=== PATIENT | female | born 1930 | race African-American/Black ===

== ENCOUNTER 2017-03-05 13:45 | Inpatient (IN) | payer OTHER, MEDICAID ==
[~2017-03-05] VITALS: Ht 167.6 cm; Wt 61.4 kg
[2017-03-05] MEDS ORDERED: SODIUM CHLORIDE 0.9% 500 ML IVB ONE (14:43)
[2017-03-05] MEDS ORDERED: MORPHINE SULFATE 4 MG/ML SYR/VIAL IV ONE (14:45)
[2017-03-05] MEDS ORDERED: ONDANSETRON HCL 4 MG/2 ML VIAL IV ONE (14:45)
[2017-03-05 14:53] LABS: Basophils # (auto) 0 uL; Basophils % (auto) 0.2 % (0.0-2.0); Eosinophils # (auto) 0 uL; Eosinophils % (auto) 0.3 % (0.0-7.0); Hematocrit 44.8 % (36.0-46.0); Hemoglobin 15.2 g/dL (12.2-16.2); Lymphocytes # (auto) 0.7 uL; Lymphocytes % (auto) 7.3 % (10.0-50.0); Mean Corpuscular Hemoglobin 33.4 pg (28.0-32.0); Mean Corpuscular Hgb Conc. 34.1 g/dL (32.0-36.0); Mean Corpuscular Volume 98.1 fL (80.0-100.0); Monocytes # (auto) 0.4 uL; Monocytes % (auto) 4.3 % (0.0-12.0); Neutrophils # (auto) 8.3 uL; Neutrophils % (auto) 87.9 % (37.0-80.0); Platelet Count (auto) 183 10^3/uL (140-450); Red Blood Cells 4.56 10^6/uL (4.0-5.20); Red Cell Distribution Width 13.5 % (11.8-14.3); White Blood Cell 9.5 10^3/uL (4.4-10.8)
[2017-03-05 15:10] LABS: Albumin 4.2 g/dL (3.4-5.0); BUN/Creatinine Ratio 11.6; Calcium 10.1 mg/dL (8.5-10.1)
[2017-03-05 15:13] LABS: Total Protein 8.7 g/dL (6.4-8.2)
[2017-03-05 15:38] LABS: Potassium 2.6 mmol/L (3.5-5.1)
[2017-03-05] MEDS ORDERED: GASTROGRAFIN 120 ML SOL ONE (16:03)
[2017-03-05] MEDS ORDERED: POTASSIUM CHL 20MEQ/50ML 50 ML IV ONE (16:15)
[2017-03-05] MEDS ORDERED: ONDANSETRON HCL 4 MG/2 ML VIAL IV PRN (17:45)
[2017-03-05] MEDS ORDERED: MORPHINE SULF INJ 2 MG/ML SYRINGE 1ML IV PRN (17:45)
[2017-03-05] MEDS ORDERED: SODIUM CHLORIDE 0.9% 1,000 ML IV ONE (17:45)
[2017-03-05] MEDS ORDERED: NITROGLYCERIN 0.4 MG SL TAB SL PRN (17:45)
[2017-03-05] MEDS: POTASSIUM CHL 20MEQ/50ML 50 ML IV SCH ×3 (18:22→22:49)
[2017-03-05 19:30] VITALS: BP 181/91
[2017-03-05] MEDS ORDERED: hydrALAZINE HCL 20 MG/ML VL IV PRN (20:45)
[2017-03-05] MEDS: ASPirin 300 MG RECTAL SUPP PR SCH (21:33)
[2017-03-05 22:00] VITALS: BP 163/92
[2017-03-06 05:00] VITALS: BP 121/68
[2017-03-06 07:11] LABS: Basophils # (auto) 0.1 uL; Basophils % (auto) 0.7 % (0.0-2.0); Eosinophils # (auto) 0 uL; Eosinophils % (auto) 0.1 % (0.0-7.0); Hematocrit 42.6 % (36.0-46.0); Hemoglobin 14.6 g/dL (12.2-16.2); Lymphocytes # (auto) 0.8 uL; Lymphocytes % (auto) 7.9 % (10.0-50.0); Mean Corpuscular Hemoglobin 33.8 pg (28.0-32.0); Mean Corpuscular Hgb Conc. 34.3 g/dL (32.0-36.0); Mean Corpuscular Volume 98.5 fL (80.0-100.0); Monocytes # (auto) 0.7 uL; Monocytes % (auto) 6.5 % (0.0-12.0); Neutrophils # (auto) 8.6 uL; Neutrophils % (auto) 84.8 % (37.0-80.0); Nucleated Red Blood Cells % 0.1 %; Platelet Count (auto) 184 10^3/uL (140-450); Red Blood Cells 4.32 10^6/uL (4.0-5.20); Red Cell Distribution Width 13.9 % (11.8-14.3); White Blood Cell 10.2 10^3/uL (4.4-10.8)
[2017-03-06 07:48] LABS: BUN/Creatinine Ratio 15.1; Calcium 9.5 mg/dL (8.5-10.1); Potassium 3.3 mmol/L (3.5-5.1)
[2017-03-06 09:00] VITALS: BP 103/56
[2017-03-06] MEDS: ASPirin 300 MG RECTAL SUPP PR SCH (10:00)
[2017-03-06 13:00] VITALS: BP 106/58
[2017-03-06] MEDS ORDERED: SODIUM CHLORIDE 0.9% 1,000 ML IV SCH (14:26)
[2017-03-06] MEDS ORDERED: diphenhdrAMINE HCL 50 MG/1 ML VL IV ONE (14:30)
[2017-03-06] MEDS ORDERED: ENOXAPARIN SOD 60 MG/0.6 ML SYRINGE SC ONE (16:15)
[2017-03-06 17:00] VITALS: BP 115/64
[2017-03-06 20:00] VITALS: BP 106/57
[2017-03-06 21:43] VITALS: BP 106/57
[2017-03-06] MEDS: ATORVASTATIN 20 MG TAB PO SCH (22:25)
[2017-03-06] MEDS: METOPROLOL TARTRATE 25 MG TAB PO SCH (22:26)
[2017-03-07 05:05] LABS: Basophils # (auto) 0.1 uL; Basophils % (auto) 2.3 % (0.0-2.0); Eosinophils # (auto) 0.2 uL; Eosinophils % (auto) 2.3 % (0.0-7.0); Hematocrit 37.3 % (36.0-46.0); Hemoglobin 12.8 g/dL (12.2-16.2); Lymphocytes # (auto) 1.5 uL; Lymphocytes % (auto) 23.2 % (10.0-50.0); Mean Corpuscular Hemoglobin 33.5 pg (28.0-32.0); Mean Corpuscular Hgb Conc. 34.3 g/dL (32.0-36.0); Mean Corpuscular Volume 97.9 fL (80.0-100.0); Monocytes # (auto) 0.5 uL; Monocytes % (auto) 7.7 % (0.0-12.0); Neutrophils # (auto) 4.3 uL; Neutrophils % (auto) 64.5 % (37.0-80.0); Nucleated Red Blood Cells % 0.1 %; Platelet Count (auto) 142 10^3/uL (140-450); Red Blood Cells 3.81 10^6/uL (4.0-5.20); Red Cell Distribution Width 13.3 % (11.8-14.3); White Blood Cell 6.6 10^3/uL (4.4-10.8)
[2017-03-07 05:10] VITALS: BP 110/69
[2017-03-07 05:30] LABS: BUN/Creatinine Ratio 22.5
[2017-03-07] MEDS ORDERED: ENOXAPARIN SOD 60 MG/0.6 ML SYRINGE SC SCH (06:00)
[2017-03-07 09:00] VITALS: BP 125/56
[2017-03-07] MEDS: ASPirin 300 MG RECTAL SUPP PR SCH (10:00)
[2017-03-07] MEDS: LISINOPRIL 5 MG TAB PO SCH (10:08)
[2017-03-07] MEDS: METOPROLOL TARTRATE 25 MG TAB PO SCH ×2 (10:09→21:48)
[2017-03-07] MEDS ORDERED: POTASSIUM CHL 20 Meq TABLET PO ONE (11:00)
[2017-03-07] MEDS: ASPirin 81 mg TAB PO SCH (11:18)
[2017-03-07 11:28] LABS: Urine Blood Trace /uL (Negative)
[2017-03-07 11:31] LABS: Urine WBC 7 /hpf (0 - 5)
[2017-03-07 11:32] LABS: Urine Bacteria FEW /hpf (None Seen)
[2017-03-07] MEDS ORDERED: LOVA40TA72 PO (11:56)
[2017-03-07] MEDS ORDERED: POTA1080 PO (11:56)
[2017-03-07] MEDS ORDERED: DOCU100T15 PO (11:56)
[2017-03-07] MEDS ORDERED: CHOL20007 PO (11:56)
[2017-03-07] MEDS ORDERED: TRAM50TA2 PO (11:56)
[2017-03-07] MEDS ORDERED: GLIM1TAB2 PO (11:56)
[2017-03-07] MEDS ORDERED: CEL100T PO (11:56)
[2017-03-07 13:00] VITALS: BP 124/52
[2017-03-07 17:00] VITALS: BP 128/51
[2017-03-07 20:00] VITALS: BP 106/46
[2017-03-07] MEDS: ATORVASTATIN 20 MG TAB PO SCH (21:47)
[2017-03-07 22:00] VITALS: BP 106/46
[2017-03-08 06:28] LABS: Basophils # (auto) 0 uL; Basophils % (auto) 0.9 % (0.0-2.0); Eosinophils # (auto) 0.1 uL; Hematocrit 38.4 % (36.0-46.0); Lymphocytes # (auto) 1.3 uL; Lymphocytes % (auto) 30.2 % (10.0-50.0); Mean Corpuscular Hemoglobin 33.4 pg (28.0-32.0); Mean Corpuscular Hgb Conc. 33.9 g/dL (32.0-36.0); Mean Corpuscular Volume 98.5 fL (80.0-100.0); Monocytes # (auto) 0.4 uL; Monocytes % (auto) 8.6 % (0.0-12.0); Neutrophils # (auto) 2.5 uL; Neutrophils % (auto) 57.3 % (37.0-80.0); Nucleated Red Blood Cells % 0.1 %; Platelet Count (auto) 140 10^3/uL (140-450); Red Cell Distribution Width 13.4 % (11.8-14.3); White Blood Cell 4.4 10^3/uL (4.4-10.8)
[2017-03-08 06:44] LABS: BUN/Creatinine Ratio 20.8; Calcium 9.1 mg/dL (8.5-10.1); Potassium 3.5 mmol/L (3.5-5.1)
[2017-03-08 06:47] LABS: INR 1.11 (0.9-1.15); Partial Thromboplastin Time 26.8 sec (22.64-33.71); Prothrombin Time 12.1 sec (9.37-12.3)
[2017-03-08] MEDS ORDERED: LIDOCAINE 2%HCL (LOCAL ANESTH.) INJ 20ML MDV ONE (07:31)
[2017-03-08] MEDS ORDERED: IODIXANOL 320MG/ML 100ML BTL IV ONE (07:31)
[2017-03-08] MEDS ORDERED: ANGIOMAX 250 MG VIAL IV ONE (07:38)
[2017-03-08] MEDS ORDERED: VERAPAMIL 2.5MG/ML INJ 2ML VIAL IV ONE (07:38)
[2017-03-08] MEDS ORDERED: fentaNYL CITRATE 100 MCG/2 ML VL ONE (07:38)
[2017-03-08] MEDS ORDERED: SODIUM CHL 0.9% 0 ML ONE (07:39)
[2017-03-08] MEDS ORDERED: MIDAZOLAM HCL 1MG/1ML-2 ML VIAL ONE (07:39)
[2017-03-08] MEDS ORDERED: HEPARIN SODIUM (PORCINE) 5000 UNITS/ML 1ML VIAL ONE (08:32)
[2017-03-08] MEDS: ASPirin 81 mg TAB PO SCH (10:34)
[2017-03-08] MEDS: LISINOPRIL 5 MG TAB PO SCH (10:34)
[2017-03-08] MEDS: METOPROLOL TARTRATE 25 MG TAB PO SCH (10:34)
[2017-03-08 13:34] VITALS: BP 135/68
== END 2017-03-08 17:30 | disposition home or self-care (01) | DRG 281 ==
LOC: EDBD 13:45 → ER 14:03 → TELE 14:04 → TELE-WESTW 19:28
PROVIDERS: ADMIT Internal Medicine; ATTEND Internal Medicine
PROC: 4A023N7 Measurement of Cardiac Sampling and Pressure, Left Heart, Percutaneous Approach (ICD-10-PCS; principal; 2017-03-05)
PROC: B2111ZZ Fluoroscopy of Multiple Coronary Arteries using Low Osmolar Contrast (ICD-10-PCS; 2017-03-05)
DX: I21.4 Non-ST elevation (NSTEMI) myocardial infarction (principal); K56.609 Unspecified intestinal obstruction, unspecified as to partial versus complete obstruction; J98.11 Atelectasis; K40.90 Unilateral inguinal hernia, without obstruction or gangrene, not specified as recurrent; E87.6 Hypokalemia; I70.0 Atherosclerosis of aorta; K57.30 Diverticulosis of large intestine without perforation or abscess without bleeding; D25.9 Leiomyoma of uterus, unspecified; E11.9 Type 2 diabetes mellitus without complications; I10 Essential (primary) hypertension; E78.5 Hyperlipidemia, unspecified; I25.10 Atherosclerotic heart disease of native coronary artery without angina pectoris; I70.8 Atherosclerosis of other arteries; M19.90 Unspecified osteoarthritis, unspecified site; Z98.49 Cataract extraction status, unspecified eye; Z88.5 Allergy status to narcotic agent; Z88.8 Allergy status to other drugs, medicaments and biological substances
CPT/HCPCS: 36415; 71045; 74018; 74176; 74250; 80048; 80053; 81001; 83690; 84484; 85025; 85610; 85730; 93005; 93306; 93458; 99152; J2250; J2405; Q9967

== ENCOUNTER 2018-01-15 08:05 | Inpatient (IN) | payer OTHER, MEDICAID ==
[~2018-01-15] VITALS: Ht 157.5 cm; Wt 69.5 kg
[~2018-01-15 08:05] MED LIST: CEL100T PO; CHOL20007 PO; DOCU100T15 PO; GLIM1TAB2 PO; LOVA40TA72 PO; POTA1080 PO; TRAM50TA2 PO
[2018-01-15] MEDS ORDERED: SODIUM CHLORIDE 0.9% 1,000 ML IV ONE (08:29)
[2018-01-15] MEDS ORDERED: MORPHINE SULFATE 4 MG/ML SYR/VIAL IV ONE (08:30)
[2018-01-15] MEDS ORDERED: ONDANSETRON HCL 4 MG/2 ML VIAL IV ONE (08:30)
[2018-01-15 09:10] LABS: Basophils # (auto) 0 uL; Basophils % (auto) 0.3 % (0.0-2.0); Eosinophils # (auto) 0 uL; Eosinophils % (auto) 0.1 % (0.0-7.0); Hematocrit 52.1 % (36.0-46.0); Hemoglobin 17.2 g/dL (12.2-16.2); Lymphocytes # (auto) 1.1 uL; Lymphocytes % (auto) 8.3 % (10.0-50.0); Mean Corpuscular Volume 100.1 fL (80.0-100.0); Monocytes # (auto) 0.9 uL; Monocytes % (auto) 6.5 % (0.0-12.0); Neutrophils # (auto) 11.3 uL; Neutrophils % (auto) 84.8 % (37.0-80.0); Platelet Count (auto) 219 10^3/uL (140-450); Red Blood Cells 5.21 10^6/uL (4.0-5.20); Red Cell Distribution Width 13.1 % (11.8-14.3); White Blood Cell 13.3 10^3/uL (4.4-10.8)
[2018-01-15 09:23] LABS: INR 1.05 (0.9-1.15); Partial Thromboplastin Time 27.9 sec (23.78-33.04); Prothrombin Time 11.2 sec (9.27-12.13)
[2018-01-15 09:28] LABS: Albumin 4.5 g/dL (3.4-5.0); Anion Gap 18 (5-15); Blood Urea Nitrogen 45 mg/dL (7-18); Calcium 11.2 mg/dL (8.5-10.1); Carbon Dioxide 23 mmol/L (21-32); Chloride 92 mmol/L (98-107); Glucose 375 mg/dL (74-106); Magnesium 3.1 mg/dL (1.6-2.6); Potassium 4.1 mmol/L (3.5-5.1); Sodium 133 mmol/L (136-145)
[2018-01-15 09:30] LABS: Alanine Aminotransferase 22 U/L (13-56); Aspartate Aminotransferase 27 U/L (15-37); BUN/Creatinine Ratio 15.3; GFR African American 19 mL/min; GFR Non-African American 16 mL/min
[2018-01-15 09:33] LABS: Alkaline Phosphatase 122 U/L (45-117); Bilirubin, Total 1.5 mg/dL (0.2-1.0); Total Protein 9.1 g/dL (6.4-8.2)
[2018-01-15 10:41] LABS: Urine Bacteria FEW /hpf (None Seen); Urine Blood 1+ /uL (Negative); Urine Hyaline Cast MANY /lpf (0 - 2); Urine Mucus FEW (None Seen); Urine Specific Gravity 1.024 (1.001-1.035); Urine WBC 2 /hpf (0 - 5)
[2018-01-15] MEDS ORDERED: GASTROGRAFIN 120 ML SOL ONE (10:43)
[2018-01-15] MEDS ORDERED: ENOXAPARIN SOD 60 MG/0.6 ML SYRINGE SC ONE (10:45)
[2018-01-15] MEDS ORDERED: ASPirin 325 MG TAB PO ONE ×3 (11:15→14:30)
[2018-01-15] MEDS ORDERED: InsuLIN REG 1unit/0.01ml Soln (100units/ml) IV ONE (13:45)
[2018-01-15] MEDS ORDERED: NITROGLYCERIN 0.4 MG SL TAB SL PRN (14:15)
[2018-01-15] MEDS ORDERED: MORPHINE SULFATE 4 MG/ML SYR/VIAL IV PRN (14:15)
[2018-01-15] MEDS ORDERED: HEPARIN DRIP/D5W 100UNITS/ML 250 ML IV SCH ×5 (14:25→15:45)
[2018-01-15] MEDS ORDERED: HEPARIN SODIUM (PORCINE) 5000 UNITS/ML 1ML VIAL IV ONE ×2 (14:30)
[2018-01-15] MEDS: SODIUM CHLORIDE 0.9% 1,000 ML IV SCH (17:00)
[2018-01-15 17:05] VITALS: BP 89/48
[2018-01-15 17:44] LABS: Basophils # (auto) 0 uL; Basophils % (auto) 0.3 % (0.0-2.0); Eosinophils # (auto) 0 uL; Eosinophils % (auto) 0.1 % (0.0-7.0); Hematocrit 50.3 % (36.0-46.0); Hemoglobin 16.7 g/dL (12.2-16.2); Lymphocytes # (auto) 1.3 uL; Lymphocytes % (auto) 8.1 % (10.0-50.0); Mean Corpuscular Hemoglobin 33.1 pg (28.0-32.0); Mean Corpuscular Hgb Conc. 33.1 g/dL (32.0-36.0); Mean Corpuscular Volume 99.7 fL (80.0-100.0); Monocytes # (auto) 1.3 uL; Monocytes % (auto) 8.4 % (0.0-12.0); Neutrophils # (auto) 12.9 uL; Neutrophils % (auto) 83.1 % (37.0-80.0); Platelet Count (auto) 218 10^3/uL (140-450); Red Blood Cells 5.05 10^6/uL (4.0-5.20); Red Cell Distribution Width 13.1 % (11.8-14.3); White Blood Cell 15.5 10^3/uL (4.4-10.8)
[2018-01-15] MEDS: HYDROcodone-ACET 5/325MG TAB PO SCH (18:00)
[2018-01-15] MEDS: ONDANSETRON HCL 4 MG/2 ML VIAL IV SCH ×2 (18:00→20:35)
[2018-01-15 18:08] LABS: INR 1.08 (0.9-1.15); Partial Thromboplastin Time 30.3 sec (23.78-33.04); Prothrombin Time 11.5 sec (9.27-12.13)
[2018-01-15 20:00] VITALS: BP 89/64
[2018-01-15] MEDS ORDERED: ONDANSETRON HCL 4 MG/2 ML VIAL ONE (20:26)
[2018-01-15] MEDS: POLYETHYLENE GLYCOL 17 GM PWDR PO SCH (22:00)
[2018-01-15 22:09] LABS: INR 1.09 (0.9-1.15); Partial Thromboplastin Time 29.2 sec (23.78-33.04); Prothrombin Time 11.6 sec (9.27-12.13)
[2018-01-16] VITALS (12 sets, daily range): BP systolic 94–120; BP diastolic 59–71
[2018-01-16] MEDS: HYDROcodone-ACET 5/325MG TAB PO SCH (02:00)
[2018-01-16] MEDS: SODIUM CHLORIDE 0.9% 1,000 ML IV SCH ×2 (04:40→10:15)
[2018-01-16 05:25] LABS: Basophils # (auto) 0 uL; Basophils % (auto) 0.3 % (0.0-2.0); Eosinophils # (auto) 0 uL; Eosinophils % (auto) 0.2 % (0.0-7.0); Hematocrit 47.3 % (36.0-46.0); Lymphocytes # (auto) 1.3 uL; Monocytes # (auto) 1.3 uL; Nucleated Red Blood Cells % 0.1 %
[2018-01-16 05:27] LABS: Lymphocytes % (auto) 13.7 % (10.0-50.0); Mean Corpuscular Hgb Conc. 33.9 g/dL (32.0-36.0); Mean Corpuscular Volume 100.3 fL (80.0-100.0); Monocytes % (auto) 13.6 % (0.0-12.0); Neutrophils # (auto) 6.8 uL; Neutrophils % (auto) 72.2 % (37.0-80.0); Platelet Count (auto) 191 10^3/uL (140-450); Red Blood Cells 4.72 10^6/uL (4.0-5.20); Red Cell Distribution Width 13.1 % (11.8-14.3); White Blood Cell 9.5 10^3/uL (4.4-10.8)
[2018-01-16] MEDS: ONDANSETRON HCL 4 MG/2 ML VIAL IV SCH ×4 (06:00→18:00)
[2018-01-16] MEDS: ASPirin 325 MG TAB PO SCH (09:46)
[2018-01-16] MEDS: POLYETHYLENE GLYCOL 17 GM PWDR PO SCH ×2 (10:00→22:00)
[2018-01-16] MEDS ORDERED: MORPHINE SULFATE 4 MG/ML SYR/VIAL IV PRN (10:00)
[2018-01-16] MEDS ORDERED: DEXTROSE (50%) 50ML SYRG IV PRN ×2 (10:45→11:00)
[2018-01-16 10:53] LABS: Calcium 10.3 mg/dL (8.5-10.1); Potassium 4.6 mmol/L (3.5-5.1)
[2018-01-16 10:58] LABS: BUN/Creatinine Ratio 13.4; Bilirubin, Total 0.7 mg/dL (0.2-1.0); Pre Albumin 26.1 mg/dL (20.0-40.0)
[2018-01-16] MEDS ORDERED: SODIUM CHLORIDE 0.9% 2,000 ML IV ONE (11:30)
[2018-01-16] MEDS: D5W/SOD CHL 0.45% 1,000 ML IV SCH ×2 (11:30→21:30)
[2018-01-16] MEDS: InsuLIN REG 1unit/0.01ml Soln (100units/ml) SC SCH ×2 (12:00→18:00)
[2018-01-16] MEDS ORDERED: ACCU-CHEK COMFORT CURVE STRIP VI SCH (12:00)
[2018-01-16] MEDS: ACCU-CHEK COMFORT CURVE STRIP VI SCH ×2 (12:00→18:00)
[2018-01-16] MEDS ORDERED: InsuLIN REG 1unit/0.01ml Soln (100units/ml) SC SCH (12:00)
[2018-01-16 13:00] LABS: Creatinine, Urine 298 mg/dL (30.0-125.0); Sodium Urine 37 mmol/L (40-220)
[2018-01-16] MEDS ORDERED: BUMETANIDE (0.25 MG/ML) INJ 10ML IV ONE (16:00)
[2018-01-16] MEDS: HEPARIN SODIUM (PORCINE) 5000 UNITS/ML 1ML VIAL SC SCH (22:23)
[2018-01-17] VITALS: BP 135/79
[2018-01-17] MEDS: ACCU-CHEK COMFORT CURVE STRIP VI SCH ×4 (00:33→17:15)
[2018-01-17] MEDS: InsuLIN REG 1unit/0.01ml Soln (100units/ml) SC SCH ×4 (00:33→17:15)
[2018-01-17] MEDS: ONDANSETRON HCL 4 MG/2 ML VIAL IV SCH ×5 (01:20→17:15)
[2018-01-17] MEDS: SODIUM CHLORIDE 0.9% 1,000 ML IV SCH ×3 (03:01→15:54)
[2018-01-17 04:00] VITALS: BP 131/68
[2018-01-17 07:03] LABS: INR 1.09 (0.9-1.15); Prothrombin Time 11.6 sec (9.27-12.13)
[2018-01-17 07:10] LABS: Albumin 3.3 g/dL (3.4-5.0); Potassium 3.7 mmol/L (3.5-5.1)
[2018-01-17 07:12] LABS: Basophils # (auto) 0 uL; Basophils % (auto) 0.2 % (0.0-2.0); Eosinophils # (auto) 0 uL; Eosinophils % (auto) 0.4 % (0.0-7.0); Hematocrit 40.8 % (36.0-46.0); Hemoglobin 13.6 g/dL (12.2-16.2); Lymphocytes # (auto) 0.8 uL; Lymphocytes % (auto) 12.9 % (10.0-50.0); Mean Corpuscular Hemoglobin 33.4 pg (28.0-32.0); Mean Corpuscular Hgb Conc. 33.4 g/dL (32.0-36.0); Mean Corpuscular Volume 99.8 fL (80.0-100.0); Monocytes % (auto) 16.6 % (0.0-12.0); Neutrophils # (auto) 4.2 uL; Neutrophils % (auto) 69.9 % (37.0-80.0); Nucleated Red Blood Cells % 0.1 %; Platelet Count (auto) 156 10^3/uL (140-450); Red Blood Cells 4.09 10^6/uL (4.0-5.20); Red Cell Distribution Width 13.3 % (11.8-14.3); White Blood Cell 6.1 10^3/uL (4.4-10.8)
[2018-01-17 07:21] LABS: BUN/Creatinine Ratio 27.8; Bilirubin, Total 0.7 mg/dL (0.2-1.0)
[2018-01-17] MEDS: D5W/SOD CHL 0.45% 1,000 ML IV SCH (07:30)
[2018-01-17 08:00] VITALS: BP 118/75
[2018-01-17] MEDS: HEPARIN SODIUM (PORCINE) 5000 UNITS/ML 1ML VIAL SC SCH ×2 (10:00→22:10)
[2018-01-17] MEDS: ASPirin 325 MG TAB PO SCH (10:00)
[2018-01-17] MEDS: POLYETHYLENE GLYCOL 17 GM PWDR PO SCH ×2 (10:00→22:00)
[2018-01-17] MEDS ORDERED: ceFAZolin 1GM VL IV ONE (10:30)
[2018-01-17] MEDS ORDERED: GLYCOPYRROLATE 0.2 MG/ML 1ML VIAL IV ONE (10:30)
[2018-01-17] MEDS ORDERED: NEOSTIGMINE 1 MG/ML INJ (10mg/10ML VIAL) IV ONE (10:30)
[2018-01-17] MEDS ORDERED: MIDAZOLAM HCL 1MG/1ML-2 ML VIAL ONE (10:35)
[2018-01-17] MEDS ORDERED: PROPOFOL 10 MG/ML 20 ML IV ONE (10:35)
[2018-01-17] MEDS ORDERED: fentaNYL CITRATE 100 MCG/2 ML VL ONE (10:35)
[2018-01-17] MEDS ORDERED: ROCURONIUM 10MG/ML 10ML VIAL IV ONE (10:35)
[2018-01-17] MEDS ORDERED: hydrALAZINE HCL 20 MG/ML VL IV PRN (11:30)
[2018-01-17] MEDS ORDERED: ePHEDrine SULFATE 50 MG/ML AMP IV PRN (11:30)
[2018-01-17] MEDS ORDERED: ONDANSETRON HCL 4 MG/2 ML VIAL IV ONE (11:30)
[2018-01-17] MEDS: MORPHINE SULFATE 4 MG/ML SYR/VIAL IV PRN ×2 (12:09→12:27)
[2018-01-17 13:30] VITALS: BP 145/47
[2018-01-17 16:00] VITALS: BP 126/46
[2018-01-17 19:50] VITALS: BP 107/55
[2018-01-18] VITALS (7 sets, daily range): BP systolic 107–128; BP diastolic 49–67
[2018-01-18] MEDS ORDERED: ACETAMINOPHEN 325 MG TAB PO PRN
[2018-01-18] MEDS: ACCU-CHEK COMFORT CURVE STRIP VI SCH ×4 (00:15→17:34)
[2018-01-18] MEDS: ONDANSETRON HCL 4 MG/2 ML VIAL IV SCH ×5 (02:00→17:18)
[2018-01-18] MEDS: SODIUM CHLORIDE 0.9% 1,000 ML IV SCH ×3 (02:15→21:13)
[2018-01-18] MEDS: InsuLIN REG 1unit/0.01ml Soln (100units/ml) SC SCH ×4 (05:38→17:34)
[2018-01-18] MEDS: ASPirin 325 MG TAB PO SCH (09:46)
[2018-01-18] MEDS: POLYETHYLENE GLYCOL 17 GM PWDR PO SCH ×2 (09:47→21:13)
[2018-01-18] MEDS: HEPARIN SODIUM (PORCINE) 5000 UNITS/ML 1ML VIAL SC SCH ×2 (09:55→21:14)
[2018-01-18 10:11] LABS: BUN/Creatinine Ratio 27.6; Calcium 8.3 mg/dL (8.5-10.1)
[2018-01-19] MEDS: ACCU-CHEK COMFORT CURVE STRIP VI SCH ×3 (00:35→12:06)
[2018-01-19] MEDS: InsuLIN REG 1unit/0.01ml Soln (100units/ml) SC SCH ×3 (00:36→12:06)
[2018-01-19] MEDS: ONDANSETRON HCL 4 MG/2 ML VIAL IV SCH ×4 (02:00→14:00)
[2018-01-19 05:00] VITALS: BP 117/59
[2018-01-19 06:00] LABS: Eosinophils # (auto) 0.2 uL; Mean Corpuscular Hgb Conc. 34.4 g/dL (32.0-36.0); White Blood Cell 5.8 10^3/uL (4.4-10.8)
[2018-01-19 06:02] LABS: Basophils # (auto) 0.1 uL; Basophils % (auto) 1.2 % (0.0-2.0); Eosinophils % (auto) 3.8 % (0.0-7.0); Hematocrit 34.2 % (36.0-46.0); Hemoglobin 11.8 g/dL (12.2-16.2); Lymphocytes % (auto) 16.6 % (10.0-50.0); Mean Corpuscular Hemoglobin 34.3 pg (28.0-32.0); Mean Corpuscular Volume 99.7 fL (80.0-100.0); Monocytes # (auto) 0.8 uL; Monocytes % (auto) 12.9 % (0.0-12.0); Neutrophils # (auto) 3.8 uL; Neutrophils % (auto) 65.5 % (37.0-80.0); Nucleated Red Blood Cells % 0.1 %; Platelet Count (auto) 110 10^3/uL (140-450); Red Blood Cells 3.44 10^6/uL (4.0-5.20); Red Cell Distribution Width 12.7 % (11.8-14.3)
[2018-01-19 06:16] LABS: Albumin 2.4 g/dL (3.4-5.0); BUN/Creatinine Ratio 22.7; Calcium 8.1 mg/dL (8.5-10.1); Potassium 3.4 mmol/L (3.5-5.1)
[2018-01-19 06:20] LABS: Bilirubin, Total 0.7 mg/dL (0.2-1.0); Total Protein 5.6 g/dL (6.4-8.2)
[2018-01-19] MEDS ORDERED: POTASSIUM CHL 20 Meq TABLET PO ONE ×2 (08:30→11:30)
[2018-01-19 09:00] VITALS: BP 153/67
[2018-01-19] MEDS: ASPirin 325 MG TAB PO SCH (10:00)
[2018-01-19] MEDS: HEPARIN SODIUM (PORCINE) 5000 UNITS/ML 1ML VIAL SC SCH (11:08)
[2018-01-19] MEDS: POLYETHYLENE GLYCOL 17 GM PWDR PO SCH (11:12)
[2018-01-19] MEDS ORDERED: ASPI-498 OR (11:13)
[2018-01-19 13:00] VITALS: BP 135/51
[2018-01-19 15:53] VITALS: BP 135/51
[2018-01-20] MEDS ORDERED: ASPirin 81 mg TAB PO SCH (10:00)
== END 2018-01-19 18:45 | disposition home health service (06) | DRG 853 ==
LOC: ER 08:05 → EDBD 08:05 → ER 14:31 → TELE 14:31 → ER 15:07 → TELE-EAST 16:09 → DOU IN ICU 17:50 → CENTRAL 01-18 20:50
PROVIDERS: ADMIT Internal Medicine; ATTEND Internal Medicine
PROC: 0YQ60ZZ Repair Left Inguinal Region, Open Approach (ICD-10-PCS; principal; 2018-01-17 10:30)
DX: A41.9 Sepsis, unspecified organism (principal); I21.4 Non-ST elevation (NSTEMI) myocardial infarction; N17.0 Acute kidney failure with tubular necrosis; N18.4 Chronic kidney disease, stage 4 (severe); K40.30 Unilateral inguinal hernia, with obstruction, without gangrene, not specified as recurrent; K56.609 Unspecified intestinal obstruction, unspecified as to partial versus complete obstruction; K40.90 Unilateral inguinal hernia, without obstruction or gangrene, not specified as recurrent; E11.22 Type 2 diabetes mellitus with diabetic chronic kidney disease; E86.0 Dehydration; N18.9 Chronic kidney disease, unspecified; M19.90 Unspecified osteoarthritis, unspecified site; K57.30 Diverticulosis of large intestine without perforation or abscess without bleeding; I25.10 Atherosclerotic heart disease of native coronary artery without angina pectoris; I67.2 Cerebral atherosclerosis; I12.9 Hypertensive chronic kidney disease with stage 1 through stage 4 chronic kidney disease, or unspecified chronic kidney disease; W19.XXXA Unspecified fall, initial encounter; Y92.009 Unspecified place in unspecified non-institutional (private) residence as the place of occurrence of the external cause; R06.03 Acute respiratory distress; E87.6 Hypokalemia; Z79.899 Other long term (current) drug therapy; Z79.82 Long term (current) use of aspirin
CPT/HCPCS: 36415; 51702; 70450; 71045; 74176; 74250; 76775; 80048; 80053; 81001; 82040; 82570; 82962; 83735; 83880; 83935; 84300; 84484; 85025; 85610; 85730; 86850; 86900; 86901; 87081; 93005; 93306; 94761; 96372; 96374; 96375; G0378; J0690; J1815; J2250; J2405; J2704

== ENCOUNTER 2018-01-24 13:31 | Emergency (ER) | payer OTHER, MEDICAID ==
[~2018-01-24] VITALS: Ht 162.6 cm; Wt 72.6 kg
[~2018-01-24 13:31] MED LIST changes: +ASPI-498 OR; -CEL100T PO; -POTA1080 PO
[2018-01-24] MEDS ORDERED: HYDROcodone-ACET 10/325MG TAB PO ONE (14:45)
[2018-01-24 16:41] VITALS: BP 96/47
== END 2018-01-24 16:44 | disposition home or self-care (01) ==
LOC: ER 13:31 → EDBD 13:31 → ER 16:44
DX: S86.912A Strain of unspecified muscle(s) and tendon(s) at lower leg level, left leg, initial encounter (principal); S86.911A Strain of unspecified muscle(s) and tendon(s) at lower leg level, right leg, initial encounter; E11.9 Type 2 diabetes mellitus without complications; E78.5 Hyperlipidemia, unspecified; I25.2 Old myocardial infarction; M19.90 Unspecified osteoarthritis, unspecified site; Z88.6 Allergy status to analgesic agent; Z79.82 Long term (current) use of aspirin; X58.XXXA Exposure to other specified factors, initial encounter; Y93.89 Activity, other specified; Y92.89 Other specified places as the place of occurrence of the external cause; Y99.8 Other external cause status
CPT/HCPCS: 93970

== ENCOUNTER 2019-01-30 09:58 | Emergency (ER) | payer OTHER, MEDICAID ==
[2019-01-30] MEDS ORDERED: ONDANSETRON HCL 4 MG/2 ML VIAL IM ONE (10:45)
[2019-01-30] MEDS ORDERED: HYDROmorphone HCL 2 MG/ML VL IM ONE (10:45)
[2019-01-30] MEDS ORDERED: DexAMETHasone SOD PHOS 10MG/1ML VIAL INJ IV ONE (11:15)
[2019-01-30 11:43] LABS: Urine Bacteria MANY /hpf (None Seen); Urine Blood 1+ /uL (Negative); Urine Mucus FEW (None Seen); Urine Specific Gravity 1.004 (1.001-1.035); Urine WBC 35 /hpf (0 - 5)
[2019-01-30 11:55] VITALS: BP 113/47
== END 2019-01-30 12:14 | disposition home or self-care (01) ==
LOC: ER 09:58
DX: M19.012 Primary osteoarthritis, left shoulder (principal); N39.0 Urinary tract infection, site not specified; M25.532 Pain in left wrist; E11.9 Type 2 diabetes mellitus without complications; E78.5 Hyperlipidemia, unspecified; I25.2 Old myocardial infarction; Z88.6 Allergy status to analgesic agent; Z79.899 Other long term (current) drug therapy
CPT/HCPCS: 73030; 81001; 93971; 96372; 96374; 99284; J1100; J1170; J2405